=== PATIENT | male | born 1985 | race Caucasian/White ===

== ENCOUNTER 2021-07-26 17:29 | Emergency (ER) | payer OTHER ==
[~2021-07-26] VITALS: Ht 167.6 cm; Wt 63.5 kg
== END 2021-07-26 23:58 | disposition home or self-care (01) ==
LOC: ER 17:29
DX: R10.11 Right upper quadrant pain (principal); R10.31 Right lower quadrant pain; R16.1 Splenomegaly, not elsewhere classified